=== PATIENT | female | born 1960 | race American Indian/Alaskan Native ===

== ENCOUNTER 2019-04-13 05:54 | Emergency (ER) | payer MEDICAID ==
[2019-04-13] MEDS ORDERED: ZOFRAN IV ONE (06:31)
[2019-04-13] MEDS ORDERED: PROTONIX IV ONE (06:31)
[2019-04-13] MEDS ORDERED: NACL 0.9% 1000 ML 1,000 ML IV ONE ×2 (06:31→08:45)
--- NOTE | 2019-04-13 06:31 | Emergency Department Report ---
ED General Adult HPI - General Chief complaint: GI Bleed Stated complaint: EMESIS/NAUSEA Time Seen by Provider: 04/13/19 06:28 Source: EMS Mode of arrival: Stretcher Limitations: No Limitations - Related Data Allergies Allergy/AdvReac Type Severity Reaction Status Date / Time No Known Allergies Allergy Verified 04/13/19 06:14 ED Review of Systems ROS: Stated complaint: EMESIS/NAUSEA Other details as noted in HPI ED Past Medical Hx - Past Medical History Hx Hypertension: Yes Hx Diabetes: Yes Hx GERD: Yes Hx of Cancer: Yes Additional medical history: dementia - Surgical History Past Surgical History?: Yes Additional Surgical History: abd sx for CA - Social History Smoking Status: Former Smoker ED Physical Exam - General Limitations: No Limitations ED Course Vital Signs 04/13/19 06:08 Temperature 98 F Pulse Rate 71 Critical care attestation.: If time is entered above; I have spent that time in minutes in the direct care of this critically ill patient, excluding procedure time. ED Disposition Condition: Stable Referrals: PHANI OLVERA MD [Primary Care Provider] - 3-5 Days
[2019-04-13] MEDS ORDERED: MORPHINE IV ONE (06:33)
--- NOTE | 2019-04-13 06:53 | Emergency Department Report ---
ED Abdominal Pain HPI - General Chief Complaint: GI Bleed Stated Complaint: EMESIS/NAUSEA Time Seen by Provider: 04/13/19 06:28 Source: EMS Mode of arrival: Stretcher Limitations: No Limitations - History of Present Illness Initial Comments: 58-year-old female is sent from [facility] for evaluation of what was thought to be GI bleeding. Apparently the patient vomited. She is postoperative from a procedure at [facility]. Transfer forms present me with very limited history. However they do state that the patient had a peritoneal abscess. I also suggest that she has a history of cancer. She has had a recent surgical procedure and [facility] I believe. The history is very incomplete at this juncture. The patient is unable to provide much information I presume due to dementia. She apparently is nauseated. -: unknown - Related Data Allergies Allergy/AdvReac Type Severity Reaction Status Date / Time No Known Allergies Allergy Verified 04/13/19 06:14 ED Review of Systems ROS: Stated complaint: EMESIS/NAUSEA Other details as noted in HPI Comment: Unobtainable due to pts medical conditions ED Past Medical Hx - Past Medical History Hx Hypertension: Yes Hx Diabetes: Yes Hx GERD: Yes Hx of Cancer: Yes Additional medical history: dementia - Surgical History Past Surgical History?: Yes Additional Surgical History: abd sx for CA - Social History Smoking Status: Former Smoker ED Physical Exam - General Limitations: Altered Mental Status (poorly oriented) General appearance: alert - Head Head exam: Present: atraumatic - Eye Eye exam: Present: normal appearance. Absent: scleral icterus - ENT ENT exam: Present: mucous membranes dry (somewhat) - Respiratory Respiratory exam: Present: normal lung sounds bilaterally. Absent: respiratory distress - Cardiovascular Cardiovascular Exam: Present: regular rate, normal rhythm. Absent: systolic murmur, diastolic murmur, rubs, gallop - GI/Abdominal GI/Abdominal exam: Present: soft, distended (mildly distended), other (surgical scar is intact). Absent: tenderness (not significantly tender and soft), guarding, rebound, rigid - Extremities Exam Extremities exam: Present: normal inspection - Neurological Exam Neurological exam: Present: alert. Absent: oriented X3 - Psychiatric Psychiatric exam: Present: agitated, flat affect - Skin Skin exam: Present: warm, dry, intact, normal color. Absent: rash ED Course Vital Signs 04/13/19 04/13/1904/13/19 06:06 06:08 06:15 Temperature 98 F Pulse Rate 71 94 H Respiratory 13 15 Rate Blood Pressure 101/56 O2 Sat by Pulse Oximetry 04/13/19 06:31 Temperature Pulse Rate 93 H Respiratory 18 Rate Blood Pressure 101/56 O2 Sat by Pulse 97 Oximetry - Reevaluation(s) Reevaluation #1: We will attempt to obtain further records. Laboratory database has been ordered. Antiemetic Protonix and analgesia. CT imaging. 04/13/19 06:53 Reevaluation #2: I have received records from [facility]. Currently the patient underwent a Whipple procedure on 03/07/2019 I do not see any further notation of surgical complication on these records. 04/13/19 08:46 Reevaluation #3: Patient given empiric antibiotics. Will discuss with [facility]. The patient is reasonably stable for potential transfer. She had her surgery at [facility] so this may be the most reasonable course. 04/13/19 10:04 Reevaluation #4: Discussed with surgery land commissioner at [facility]. They have accepted the patient for ER to ER transfer. 04/13/19 11:30 ED Medical Decision Making - Lab Data Result diagrams: 04/13/19 06:48 04/13/19 06:48 Laboratory Results - last 24 hr 04/13/19 04/13/19 04/13/19 06:48 06:48 06:48 WBC 14.3 H RBC 4.45 Hgb 10.8 Hct 34.2 MCV 77 L MCH 24 L MCHC 32 RDW 21.1 H Plt Count 256 Lymph % (Auto) 10.8 L Teller % (Auto) 10.3 H Eos % (Auto) 0.1 Baso % (Auto) 0.2 Lymph # 1.5 Teller # 1.5 H Eos # 0.0 Baso # 0.0 Seg Neutrophils % 78.6 H Seg Neutrophils # 11.3 H PT 13.7 INR 1.08 APTT 28.6 VBG pH Sodium 139 Potassium 3.6 Chloride 104.3 Carbon Dioxide 18 L Anion Gap 20 BUN 15 Creatinine 1.7 H Estimated GFR 37 BUN/Creatinine Ratio 9 Glucose 283 H Ketones Quantitative Lactic Acid Calcium 9.2 Magnesium Total Bilirubin Direct Bilirubin Indirect Bilirubin AST ALT Alkaline Phosphatase NT-Pro-B Natriuret Pep Total Protein Albumin Albumin/Globulin Ratio Lipase Blood Type Antibody Screen 04/13/19 04/13/19 04/13/19 06:48 06:48 06:48 WBC RBC Hgb Hct MCV MCH MCHC RDW Plt Count Lymph % (Auto) Teller % (Auto) Eos % (Auto) Baso % (Auto) Lymph # Teller # Eos # Baso # Seg Neutrophils % Seg Neutrophils # PT INR APTT VBG pH Sodium Potassium Chloride Carbon Dioxide Anion Gap BUN Creatinine Estimated GFR BUN/Creatinine Ratio Glucose Ketones Quantitative Negative Lactic Acid 3.20 H* Calcium Magnesium 1.50 L Total Bilirubin 0.80 Direct Bilirubin 0.5 H Indirect Bilirubin 0.3 AST 102 H ALT 41 Alkaline Phosphatase 457 H NT-Pro-B Natriuret Pep 153.3 Total Protein 8.4 H Albumin 2.8 L Albumin/Globulin Ratio 0.5 Lipase 1459 H Blood Type Antibody Screen 04/13/19 04/13/19 06:48 06:57 WBC RBC Hgb Hct MCV MCH MCHC RDW Plt Count Lymph % (Auto) Teller % (Auto) Eos % (Auto) Baso % (Auto) Lymph # Teller # Eos # Baso # Seg Neutrophils % Seg Neutrophils # PT INR APTT VBG pH 7.299 L Sodium Potassium Chloride Carbon Dioxide Anion Gap BUN Creatinine Estimated GFR BUN/Creatinine Ratio Glucose Ketones Quantitative Lactic Acid Calcium Magnesium Total Bilirubin Direct Bilirubin Indirect Bilirubin AST ALT Alkaline Phosphatase NT-Pro-B Natriuret Pep Total Protein Albumin Albumin/Globulin Ratio Lipase Blood Type B POSITIVE Antibody Screen Negative - Radiology Data Radiology results: report reviewed FINDINGS: Abdomen and pelvis: Exam is limited without IV contrast. There is extensive postoperative change consistent with prior cholecystectomy. Several surgical clips are present near the head of the pancreas interposed between the gallbladder fossa. Intermixed fluid and gas is seen between the head of the pancreas in the gallbladder fossa and is poorly marginated that measures about 7 x 3 cm. No evidence of gastric outlet obstruction at this time. There is a separate collection just anterior to the right kidney that is well-circumscribed and restraints intermediate to hyperdense fluid that measures 5 cm in diameter. No bowel obstruction identified. Pneumobilia is incidentally noted. The spleen pancreas detail adrenal glands and kidneys are grossly unremarkable without hydronephrosis. No drainable pelvic fluid collection is identified. Sigmoid diverticulosis. The appendix is unremarkable. Urinary bladder is mostly collapsed IMPRESSION: Extensive postoperative changes of the upper abdomen with extensive postoperative collections with intermixed gas adjacent to the head of the pancreas interposed between the proximal duodenum and gallbladder fossa. There is also a separate collection just ante rior to the right kidney that measures 5 cm in diameter that is suspicious for postoperative hematoma. Ultimately this ill-defined gaseous/fluid collection within the right upper quadrant near the ga llbladder fossa and pancreatic head could represent evolving abscess. Close attention on follow-up recommended. Critical care attestation.: If time is entered above; I have spent that time in minutes in the direct care of this critically ill patient, excluding procedure time. ED Disposition Clinical Impression: Intra-abdominal abscess, Renal insufficiency Pancreatitis Qualifiers: Chronicity: acute Pancreatitis type: other Acute pancreatitis complication: unspecified Qualified Code(s): K85.80 - Other acute pancreatitis without necrosis or infection Disposition: [id number]/TX-70 ANOTHER TYPE HLTHCARE Is pt being admited?: No Does the pt Need Aspirin: No Condition: Stable Referrals: PHANI OLVERA MD [Referring] - 3-5 Days Forms: Accompanied Note Time of Disposition: 11:31
[2019-04-13 07:34] LABS: Basophils % (Auto) 0.2 % (0.0-1.8); Calcium 9.2 mg/dL (8.4-10.2); Eosinophils % (Auto) 0.1 % (0.0-4.3); Hematocrit 34.2 % (30.3-42.9); Hemoglobin 10.8 gm/dl (10.1-14.3); Lymphocytes # (Auto) 1.5 K/mm3 (1.2-5.4); Lymphocytes % (Auto) 10.8 % (13.4-35.0); Mean Corpuscular HGB Conc 32 % (30-34); Mean Corpuscular Volume 77 fl (79-97); Monocytes # (Auto) 1.5 K/mm3 (0.0-0.8); Monocytes % (Auto) 10.3 % (0.0-7.3); Platelet Count 256 K/mm3 (140-440); Red Blood Count 4.45 M/mm3 (3.65-5.03)
[2019-04-13 07:35] LABS: Albumin 2.8 g/dL (3.9-5); Bilirubin,Direct 0.5 mg/dL (0-0.2)
[2019-04-13 07:45] LABS: INR 1.08 (0.87-1.13)
[2019-04-13 07:46] LABS: Partial Thromboplastin Time 28.6 Sec. (24.2-36.6)
[2019-04-13 07:49] LABS: Red Cell Distribution Width 21.1 % (13.2-15.2)
[2019-04-13] MEDS ORDERED: MERREM 1,000 MG in NACL 0.9% 100 ML IV ONE (09:15)
--- NOTE | 2019-04-13 09:55 | Cat Scan Report ---
CT abdomen pelvis wo con INDICATION / CLINICAL INFORMATION: Diffuse abdominal pain. No provided history from the patient. TECHNIQUE: Routine CT of the abdomen and pelvis without IV contrast All CT scans at this location are performed using CT dose reduction for ALARA by means of automated exposure control. COMPARISON: None available. FINDINGS: Abdomen and pelvis: Exam is limited without IV contrast. There is extensive postoperative change cons istent with prior cholecystectomy. Several surgical clips are present near the head of the pancreas i nterposed between the gallbladder fossa. Intermixed fluid and gas is seen between the head of the weir creas in the gallbladder fossa and is poorly marginated that measures about 7 x 3 cm. No evidence of gastric outlet obstruction at this time. There is a separate collection just anterior to the right ki dney that is well-circumscribed and restraints intermediate to hyperdense fluid that measures 5 cm in diameter. No bowel obstruction identified. Pneumobilia is incidentally noted. The spleen pancreas detail adrena l glands and kidneys are grossly unremarkable without hydronephrosis. No drainable pelvic fluid colle ction is identified. Sigmoid diverticulosis. The appendix is unremarkable. Urinary bladder is mostly collapsed IMPRESSION: Extensive postoperative changes of the upper abdomen with extensive postoperative collect ions with intermixed gas adjacent to the head of the pancreas interposed between the proximal duodenu m and gallbladder fossa. There is also a separate collection just anterior to the right kidney that m easures 5 cm in diameter that is suspicious for postoperative hematoma. Ultimately this ill-defined g aseous/fluid collection within the right upper quadrant near the gallbladder fossa and pancreatic hea d could represent evolving abscess. Close attention on follow-up recommended. Signer Name: Fidel Ramirez MD Signed: 04/13/2019 9:50 AM Workstation Name: [employer]
[2019-04-13] MEDS: FLAGYL 500 MG/100 ML 500 MG/100 ML BAG IV SCH ×2 (10:20→14:14)
[2019-04-13 14:11] VITALS: BP 154/71
== END 2019-04-13 14:12 | disposition other institution (70) ==
LOC: ED 05:54
DX: T81.43XA Infection following a procedure, organ and space surgical site, initial encounter (principal); K65.1 Peritoneal abscess; N28.9 Disorder of kidney and ureter, unspecified; K85.90 Acute pancreatitis without necrosis or infection, unspecified; I10 Essential (primary) hypertension; E11.9 Type 2 diabetes mellitus without complications; K21.0 Gastro-esophageal reflux disease with esophagitis; Z87.891 Personal history of nicotine dependence; Y83.9 Surgical procedure, unspecified as the cause of abnormal reaction of the patient, or of later complication, without mention of misadventure at the time of the procedure; Y92.89 Other specified places as the place of occurrence of the external cause
CPT/HCPCS: 36415; 74176; 80048; 80076; 82010; 82140; 82805; 83690; 83735; 83880; 85025; 85610; 85730; 86850; 86900; 86901; 96361; 96365; 96366; 96375; 99285; C9113; J2185; J2270; J2405; J7030